=== PATIENT | female | born 1955 | race Caucasian/White ===

== ENCOUNTER → 2024-10-06 | Outpatient (CLI) | payer MEDICARE, SELFPAY ==
--- NOTE | 2024-10-06 15:05 | XR_ITS ---
Examination: Wrist, left 3 views Technique: Wrist AP, oblique, lateral 3 views Date and time of exam: October 06, 2024 1512 hours INDICATIONS: Wrist fracture October 01, 2024 FINDINGS: Acute comminuted impacted intra-articular fracture distal radial metaphysis The lateral view the distal radial fracture fragment is displaced dorsally 7 mm Comminuted fractures distal ulna with satisfactory alignment IMPRESSION: Acute comminuted fractures distal radius distal ulna as above
--- NOTE | 2024-10-06 15:05 | XR_ITS ---
Examination: Hand, left 3 views Technique: Hand AP, oblique, lateral 3 views Date and time of exam: October 06, 2024 1515 hours INDICATIONS: History wrist fractures FINDINGS: Impacted comminuted intra-articular fracture distal radial metaphysis Comminuted fracture distal ulna without significant displacement On the lateral view the distal radial fracture fragment is displaced dorsally approximately 6 mm Carpal bones metacarpals and digits appear intact IMPRESSION: Fractures distal radius distal ulna as above
== END | disposition home or self-care (01) ==
PROVIDERS: PCP Family Medicine; Referring Provider Nurse Practitioner Gerontology; Visit Provider Nurse Practitioner Gerontology
DX: S52.572A Other intraarticular fracture of lower end of left radius, initial encounter for closed fracture (principal); S52.602A Unspecified fracture of lower end of left ulna, initial encounter for closed fracture; X58.XXXA Exposure to other specified factors, initial encounter
CPT/HCPCS: 73110; 73130